=== PATIENT | female | born 1960 | race Caucasian/White ===

== ENCOUNTER → 2016-12-06 | Outpatient (CLI) | payer OTHER ==
[~2016-12-06] MED LIST: ATEN50TA2 PO; CENTRUM MULTIVITAMIN PO; LISI10TA4 PO; VITATAB11 PO; VOLT1GEL24 TD
--- NOTE | 2016-12-07 05:33 | REP ---
Clinical: Hypertension . Technique: León scale and color Doppler evaluation using linear high frequency transducer Findings: Two-dimensional león scale and color images demonstrate normal arterial lumen with laminar flow and no appreciable narrowing. Color Doppler interrogation demonstrates normal arterial wave patterns and velocities with no significant spectral broadening. Normal flow direction is appreciated in the bilateral vertebral arteries. RIGHT (cm/s) LEFT (cm/s) ICA peak systolic velocity 60.5 74.7 ICA diastolic velocity 27.2 37.7 ECA peak systolic velocity 70.7 101.7 CCA peak systolic velocity 84.0 95.5 ICA/CCA ratio 0.72 0.78 Impression: No hemodynamically significant areas of narrowing or stenosis appreciated. Based on set standards narrowing falls within the normal range. Signed by Rui Keene MD 12/07/2016 05:24 A
== END ==
LOC: M RAD 10:25
PROVIDERS: ATTEND Physician Assistant Medical
DX: R09.89 Other specified symptoms and signs involving the circulatory and respiratory systems (principal)

== ENCOUNTER → 2017-01-04 | Outpatient (CLI) | payer OTHER ==
[2017-01-04 17:10] LABS: BASO % 0.4 % (0.0-1.0); EOS # 0.1 K/mm3 (0.0-0.50); EOS % 1.4 % (0.0-3.0); LYMPH # 2.1 K/mm3 (1.5-4.5); LYMPH % 26.4 % (24.0-44.0); MEAN CORPUSCULAR HEMOGLOBIN 35.5 pg (27.0-33.0); MEAN CORPUSCULAR HGB CONC 32.8 g/dl (32.0-36.5); MEAN CORPUSCULAR VOLUME 108.2 fl (80.0-96.0); MONO # 0.5 K/mm3 (0.0-0.8); MONO % 6.3 % (0.0-5.0); NEUTROPHILS # 5.1 K/mm3 (1.8-7.7); NEUTROPHILS % 63.7 % (36.0-66.0); RED CELL DISTRIBUTION WIDTH 12.3 % (11.5-14.5)
[2017-01-04 17:45] LABS: ALBUMIN 3.8 GM/DL (3.2-5.2); ALBUMIN/GLOBULIN RATIO 1.31 (1.00-1.93); ALKALINE PHOSPHATASE 99 U/L (45-117); ALT/SGPT 20 U/L (12-78); ANION GAP 8 MEQ/L (8-16); AST/SGOT 21 U/L (15-37); BILIRUBIN,TOTAL 0.7 MG/DL (0.2-1.0); BLOOD UREA NITROGEN 8 MG/DL (7-18); CALCIUM LEVEL 8.6 MG/DL (8.5-10.1); CARBON DIOXIDE LEVEL 28 MEQ/L (21-32); CHLORIDE LEVEL 102 MEQ/L (98-107); CHOLESTEROL LEVEL 239 MG/DL (<200); CREATININE FOR GFR 0.71 MG/DL (0.55-1.02); GLOMERULAR FILTRATION RATE > 60.0 (>51); GLUCOSE, FASTING 94 MG/DL (70-105); POTASSIUM SERUM 4.3 MEQ/L (3.5-5.1); SODIUM LEVEL 138 MEQ/L (136-145); TOTAL PROTEIN 6.7 GM/DL (6.4-8.2); TRIGLYCERIDES LEVEL 147 MG/DL (<150)
== END ==
LOC: M WUC 12:45
PROVIDERS: ATTEND Physician Assistant Medical
DX: I10 Essential (primary) hypertension (principal)

== ENCOUNTER 2019-11-26 10:03 | Emergency (ER) | payer OTHER ==
[~2019-11-26] VITALS: Ht 177.8 cm; Wt 58.5 kg
[~2019-11-26 10:03] MED LIST changes: +VOLT1GEL15 TD; -VOLT1GEL24 TD
[2019-11-26] MEDS ORDERED: NS 1,000 ML IV ONE ×2 (10:30→12:30)
--- NOTE | 2019-11-26 10:43 | ECGEPIP ---
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
[2019-11-26 10:53] LABS: BASO # 0.1 10^3/uL (0.0-0.2); BASO % 0.6 % (0.0-1.0); EOS % 0.3 % (0.0-3.0); HEMATOCRIT 34.4 % (36.0-47.0); LYMPH % 12.2 % (24.0-44.0); MEAN CORPUSCULAR HEMOGLOBIN 36.5 pg (27.0-33.0); MEAN CORPUSCULAR HGB CONC 34.9 g/dl (32.0-36.5); MEAN CORPUSCULAR VOLUME 104.6 fl (80.0-96.0); MONO # 0.9 10^3/uL (0.0-0.8); MONO % 10.8 % (0.0-5.0); NEUTROPHILS # 5.8 10^3/uL (1.5-8.5); NEUTROPHILS % 74.3 % (36.0-66.0); PLATELET COUNT, AUTOMATED 177 10^3/uL (150-450); RED BLOOD COUNT 3.29 10^6/uL (4.00-5.40); WHITE BLOOD COUNT 7.8 10^3/uL (4.0-10.0)
[2019-11-26 11:17] LABS: CK-MB VALUE MASS 4.2 NG/ML (<3.6); MB/CK RELATIVE INDEX 6.27 (< OR =4); TROPONIN I 0.02 NG/ML (< 0.10)
[2019-11-26 11:58] LABS: ALBUMIN 3.9 GM/DL (3.2-5.2); BILIRUBIN,DIRECT 0.7 MG/DL (0.0-0.2); BILIRUBIN,TOTAL 1.2 MG/DL (0.2-1.0); CALCIUM LEVEL 9.3 MG/DL (8.5-10.1); CREATININE FOR GFR 1.41 MG/DL (0.55-1.30); GLOMERULAR FILTRATION RATE 40.9 (>51); TOTAL PROTEIN 7.2 GM/DL (6.4-8.2)
[2019-11-26] MEDS ORDERED: POTASSIUM CHLORIDE 10 MEQ SR TABLET PO ONE ×2 (12:30→16:15)
--- NOTE | 2019-11-26 13:32 | REP ---
RIGHT UPPER QUADRANT SONOGRAPHY: HISTORY: Abdomen pain and vomiting. Pancreatitis. No comparison study. FINDINGS: Scanning through the right upper quadrant of the abdomen demonstrates a contracted appearing gallbladder with borderline wall thickness, 3.8 mm. No pericholecystic fluid is seen. No cholelithiasis is appreciated. Common bile duct is normal measuring 0.4 cm in greatest diameter. No focal liver lesion is seen. There is no evidence of ascites. Pancreas is unremarkable. There is a 1.1 cm cyst in the mid to lower pole of the right kidney. The right kidney measures 10.3 x 6.1 x 4.9 cm. No hydronephrosis is seen. IMPRESSION: Small right renal cyst. Partially contracted appearing gallbladder without visible stone or pericholecystic fluid. Normal pancreas and liver. Electronically Signed by Stas Baird MD 11/26/2019 01:45 P
[2019-11-26 16:40] VITALS: BP 131/63
[2019-11-26] MEDS ORDERED: MAGN400T2 PO (17:54)
== END 2019-11-26 16:57 | disposition home or self-care (01) ==
LOC: M ED 10:03
DX: K85.90 Acute pancreatitis without necrosis or infection, unspecified (principal); E87.6 Hypokalemia; N28.1 Cyst of kidney, acquired; R00.0 Tachycardia, unspecified; I10 Essential (primary) hypertension; I44.7 Left bundle-branch block, unspecified; F17.200 Nicotine dependence, unspecified, uncomplicated

== ENCOUNTER → 2019-12-17 | Outpatient (CLI) | payer OTHER ==
[~2019-12-17] MED LIST changes: +MAGN400T2 PO
== END ==
LOC: M LABSMTC 13:39
PROVIDERS: ATTEND Family Medicine
DX: Z11.59 Encounter for screening for other viral diseases (principal); Z20.828 Contact with and (suspected) exposure to other viral communicable diseases

== ENCOUNTER → 2019-12-22 | Outpatient (CLI) | payer OTHER ==
--- NOTE | 2019-12-22 15:21 | REP ---
CHEST, TWO VIEWS: There is no evidence of acute infiltrate. No pleural effusion is seen. The heart is normal in size. The mediastinal silhouette is unremarkable. The visualized osseous structures are intact. IMPRESSION: No acute pulmonary disease. Electronically Signed by Maximo León MD 12/22/2019 04:01 P
== END ==
LOC: M LRY 14:39
PROVIDERS: ATTEND Physician Assistant
DX: R06.00 Dyspnea, unspecified (principal)

== ENCOUNTER → 2019-12-22 | Outpatient (REF) | payer OTHER ==
[2019-12-22 19:39] LABS: BASO # 0.1 10^3/uL (0.0-0.2); BASO % 1.2 % (0.0-1.0); EOS # 0.1 10^3/uL (0.0-0.5); HEMATOCRIT 38.5 % (36.0-47.0); HEMOGLOBIN 12.9 g/dl (12.0-15.5); LYMPH # 1.5 10^3/uL (1.5-5.0); LYMPH % 31.2 % (24.0-44.0); MEAN CORPUSCULAR HEMOGLOBIN 36.2 pg (27.0-33.0); MEAN CORPUSCULAR HGB CONC 33.5 g/dl (32.0-36.5); MEAN CORPUSCULAR VOLUME 108.1 fl (80.0-96.0); MONO # 0.6 10^3/uL (0.0-0.8); MONO % 12.7 % (0.0-5.0); NEUTROPHILS # 2.6 10^3/uL (1.5-8.5); NEUTROPHILS % 53.5 % (36.0-66.0); PLATELET COUNT, AUTOMATED 196 10^3/uL (150-450); RED BLOOD COUNT 3.56 10^6/uL (4.00-5.40); WHITE BLOOD COUNT 4.8 10^3/uL (4.0-10.0)
[2019-12-22 20:12] LABS: ALBUMIN 3.5 GM/DL (3.2-5.2); ALT/SGPT 170 U/L (12-78); BILIRUBIN,TOTAL 0.9 MG/DL (0.2-1.0); BLOOD UREA NITROGEN 6 MG/DL (7-18); CALCIUM LEVEL 8.6 MG/DL (8.5-10.1); CARBON DIOXIDE LEVEL 28 MEQ/L (21-32); CHLORIDE LEVEL 99 MEQ/L (98-107); CREATININE FOR GFR 0.51 MG/DL (0.55-1.30); GLOMERULAR FILTRATION RATE > 60.0 (>51); GLUCOSE, FASTING 89 MG/DL (70-100); LIPASE 315 U/L (73-393); MAGNESIUM LEVEL 1.4 MG/DL (1.8-2.4); POTASSIUM SERUM 3.5 MEQ/L (3.5-5.1); SODIUM LEVEL 140 MEQ/L (136-145); TOTAL PROTEIN 6.7 GM/DL (6.4-8.2)
[2019-12-25 00:07] LABS: EBV VIRAL CAPSID AG IgM <36.0 U/mL (0.0-35.9)
== END ==
LOC: M SFHCLERA 14:41
PROVIDERS: ATTEND Physician Assistant
DX: R53.83 Other fatigue (principal); R79.89 Other specified abnormal findings of blood chemistry

== ENCOUNTER 2019-12-30 10:06 | Emergency (ER) | payer OTHER ==
[~2019-12-30] VITALS: Ht 177.8 cm; Wt 57.7 kg
[2019-12-30] MEDS ORDERED: NS 1,000 ML IV ONE (10:30)
[2019-12-30 11:19] LABS: BASO # 0.1 10^3/uL (0.0-0.2); BASO % 0.9 % (0.0-1.0); EOS % 0.4 % (0.0-3.0); HEMATOCRIT 34.6 % (36.0-47.0); HEMOGLOBIN 12.1 g/dl (12.0-15.5); LYMPH # 0.8 10^3/uL (1.5-5.0); LYMPH % 14.5 % (24.0-44.0); MEAN CORPUSCULAR HEMOGLOBIN 37.6 pg (27.0-33.0); MEAN CORPUSCULAR VOLUME 107.5 fl (80.0-96.0); MONO # 0.6 10^3/uL (0.0-0.8); MONO % 11.3 % (0.0-5.0); NEUTROPHILS # 4.1 10^3/uL (1.5-8.5); PLATELET COUNT, AUTOMATED 144 10^3/uL (150-450); RED BLOOD COUNT 3.22 10^6/uL (4.00-5.40); WHITE BLOOD COUNT 5.7 10^3/uL (4.0-10.0)
[2019-12-30 11:29] LABS: INR 1.04; PROTHROMBIN TIME 13.3 SECONDS (11.8-14.0)
[2019-12-30 11:30] LABS: PARTIAL THROMBOPLASTIN TIME 28.6 SECONDS (25.0-38.4)
[2019-12-30 11:42] LABS: ALBUMIN 3.1 GM/DL (3.2-5.2); ALT/SGPT 144 U/L (12-78); AMYLASE 36 U/L (25-115); BILIRUBIN,DIRECT 1.1 MG/DL (0.0-0.2); BILIRUBIN,TOTAL 1.9 MG/DL (0.2-1.0); BLOOD UREA NITROGEN 8 MG/DL (7-18); CALCIUM LEVEL 8.7 MG/DL (8.5-10.1); CARBON DIOXIDE LEVEL 24 MEQ/L (21-32); CHLORIDE LEVEL 100 MEQ/L (98-107); CREATININE FOR GFR 0.57 MG/DL (0.55-1.30); GLOMERULAR FILTRATION RATE > 60.0 (>51); GLUCOSE, FASTING 127 MG/DL (70-100); LIPASE 478 U/L (73-393); SODIUM LEVEL 137 MEQ/L (136-145); TOTAL PROTEIN 6.6 GM/DL (6.4-8.2)
[2019-12-30] MEDS: GASTROGRAFIN SOLUTION 30ML PO SCH ×2 (11:46→12:13)
[2019-12-30] MEDS ORDERED: ISOVUE-370 76% 100ML VIAL As Ordered ONE (12:57)
[2019-12-30 13:00] LABS: FREE T4 0.97 NG/DL (0.76-1.46)
--- NOTE | 2019-12-30 14:18 | REP ---
CT ABDOMEN AND PELVIS WITH IV AND ORAL CONTRAST: HISTORY: Poor appetite. Elevated liver function studies. Tobacco use. No comparison CT study. CT CONTRAST DOSE: 100 mL of intravenous Isovue 370. 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 The lung bases are clear on axial CT images. There is profound diffuse fatty infiltration of the liver. The liver is enlarged measuring approximately 17 cm in craniocaudal span in the midclavicular line. Spleen is normal in size homogeneous in texture. No ascites is seen. Normal adrenal glands are seen. There are cortical cysts affecting the kidneys bilaterally. The largest of these is an upper pole cyst in the left kidney measuring 2.7 cm in greatest diameter. No abnormality is noted in the pancreas. The gallbladder is mildly distended but otherwise unremarkable. No hydronephrosis is seen. The small and large intestinal bowel loops are normal in the upper abdomen. No retroperitoneal mass or adenopathy is seen. The appendix is surgically absent. No uterine or ovarian abnormality is observed. Urinary bladder is intact. No abdominal wall defect is seen. Bone window settings demonstrate no bony destructive lesion. There are degenerative disc changes at L5-S1. There is a mild old wedge deformity at the T12 vertebral body level. IMPRESSION: Marked fatty infiltration of the liver consistent with steatohepatitis. Small bilateral renal cysts. Somewhat distended but otherwise unremarkable gallbladder. Post appendectomy. Otherwise negative. Electronically Signed by Stas Baird MD 12/30/2019 03:48 P
[2019-12-30] MEDS ORDERED: ONDA4TAB6 PO (14:27)
[2019-12-30] MEDS ORDERED: POTASSIUM CHLORIDE 10 MEQ SR TABLET PO ONE (14:30)
[2019-12-30 14:39] VITALS: BP 138/69
--- NOTE | 2019-12-31 08:30 | ECGEPIP ---
[facility] - ED Test Date: 2019-12-30 Pat Name: SEEMA MARTEL Department: Room: - Gender: Female [employer]: : 1960 Requested By: JOSEPHINE ZARATE PA-C. Order Number: [id number] Reading MD: Chino Soares Measurements Intervals [place] Rate: 108 P: 69 MD: 156 QRS: -37 QRSD: 146 T: 114 QT: 373 QTc: 502 Interpretive Statements SINUS TACHYCARDIA LEFT AXIS DEVIATION LEFT BUNDLE BRANCH BLOCK SIMILAR TO 11/26/19 Electronically Signed on 12-31-2019 8:30:25 EDT by Chino Soares
[2019-12-31 09:40] LABS: HEPATITIS B SURFACE ANTIGEN NEGATIVE (NEGATIVE)
[2019-12-31 10:07] LABS: HEPATITIS B CORE ANTIBODY IGM NEGATIVE (NEGATIVE)
[2019-12-31 10:09] LABS: HEPATITIS A ANTIBODY IGM NEGATIVE (NEGATIVE)
[2019-12-31 14:17] LABS: ANTINUCLEAR ANTIBODIES DIRECT Negative (Negative)
== END 2019-12-30 14:57 | disposition home or self-care (01) ==
LOC: M ED 10:06
DX: E87.6 Hypokalemia (principal); K75.81 Nonalcoholic steatohepatitis (NASH); I10 Essential (primary) hypertension; R00.0 Tachycardia, unspecified; I44.7 Left bundle-branch block, unspecified; Z79.899 Other long term (current) drug therapy; F17.210 Nicotine dependence, cigarettes, uncomplicated
CPT/HCPCS: 74177; 80048; 80076; 82150; 83690; 84439; 84443; 85025; 85610; 85730; 86038; 86705; 86709; 86803; 87340; 93005; 96360; 99284; Q9963; Q9967

== ENCOUNTER 2020-01-14 22:15 | Emergency (ER) | payer OTHER ==
[~2020-01-14] VITALS: Ht 177.8 cm; Wt 56.0 kg
[~2020-01-14 22:15] MED LIST changes: +ONDA4TAB6 PO
[2020-01-15 00:13] LABS: BASO # 0.1 10^3/uL (0.0-0.2); BASO % 1.7 % (0.0-1.0); EOS % 0.6 % (0.0-3.0); HEMATOCRIT 35.1 % (36.0-47.0); HEMOGLOBIN 12.2 g/dl (12.0-15.5); LYMPH # 0.9 10^3/uL (1.5-5.0); LYMPH % 18.5 % (24.0-44.0); MEAN CORPUSCULAR HEMOGLOBIN 37.2 pg (27.0-33.0); MEAN CORPUSCULAR HGB CONC 34.8 g/dl (32.0-36.5); MONO # 0.6 10^3/uL (0.0-0.8); MONO % 12.3 % (0.0-5.0); NEUTROPHILS # 3.2 10^3/uL (1.5-8.5); NEUTROPHILS % 65.6 % (36.0-66.0); PLATELET COUNT, AUTOMATED 210 10^3/uL (150-450); RED BLOOD COUNT 3.28 10^6/uL (4.00-5.40); WHITE BLOOD COUNT 4.8 10^3/uL (4.0-10.0)
[2020-01-15 00:19] LABS: ALBUMIN 3.5 GM/DL (3.2-5.2); ALT/SGPT 121 U/L (12-78); BILIRUBIN,DIRECT 0.8 MG/DL (0.0-0.2); BILIRUBIN,TOTAL 1.3 MG/DL (0.2-1.0); BLOOD UREA NITROGEN 6 MG/DL (7-18); C REACTIVE PROTEIN QUANTITATIV 0.56 MG/DL (0.00-0.30); CARBON DIOXIDE LEVEL 25 MEQ/L (21-32); CHLORIDE LEVEL 103 MEQ/L (98-107); CPK CREATINE PHOSPHOKINASE 54 U/L (26-192); CREATININE FOR GFR 0.51 MG/DL (0.55-1.30); FREE T4 1.05 NG/DL (0.76-1.46); GLOMERULAR FILTRATION RATE > 60.0 (>51); GLUCOSE, FASTING 95 MG/DL (70-100); MYOGLOBIN 51 NG/ML (13-71); SODIUM LEVEL 141 MEQ/L (136-145); TOTAL PROTEIN 6.8 GM/DL (6.4-8.2)
[2020-01-15 00:34] LABS: ERYTHROCYTE SEDIMENTATION RATE 25 mm/hr (0-30)
[2020-01-15] MEDS ORDERED: PROHANCE 279.3MG/ML 5ML VIAL As Ordered ONE (00:54)
--- NOTE | 2020-01-15 01:41 | REPVR ---
PROCEDURE INFORMATION: Exam: MR Head Without and With Contrast Exam date and time: 01/15/2020 1:21 AM Age: 59 years old Clinical indication: Weakness, extremity; Bilateral; Patient HX: PT states weakness for years that has worsened over the past 2. Nki PT states no priors; Additional info: Progressive weakness, R/O ms, request Dr. Pineda TECHNIQUE: Imaging protocol: MR of the head without and with intravenous contrast. 3D rendering: MIP and/or 3D reconstructed images were created by the technologist. Contrast material: PROHANCE; Contrast volume: 10 ml; Contrast route: 22G; COMPARISON: No relevant prior studies available. FINDINGS: Mild volume loss. Major vascular flow voids at the skull base are preserved. No extra-axial fluid collection. Minimal nonspecific white matter gliosis. No midline shift or intracranial mass effect. No diffusion restriction. No pathologic intracranial enhancement. Visualized paranasal sinuses and mastoid air cells are clear. IMPRESSION: Minimal white matter gliosis, nonspecific. Suspect sequelae of chronic microvascular ischemia, atypical appearance for demyelination . Electronically signed by: Azam Conroy On 01/15/2020 01:41:07 AM
--- NOTE | 2020-01-15 01:41 | REPVR ---
PROCEDURE INFORMATION: Exam: MR Cervical Spine Without and With Contrast Exam date and time: 01/15/2020 1:21 AM Age: 59 years old Clinical indication: Patient HX: PT states weakness for years that has worsened over the past 2. Nki PT states no priors; Additional info: Progressive weakness, R/O ms, request Dr. Pineda TECHNIQUE: Imaging protocol: Multiplanar magnetic resonance images of the cervical spine without and with intravenous contrast. Contrast material: PROHANCE; Contrast volume: 10 ml; Contrast route: 22G; COMPARISON: No relevant prior studies available. FINDINGS: Trace anterolisthesis of C4 on C5 and trace retrolisthesis of C5 on C6. Vertebral body heights are preserved. Multilevel disc desiccation with disc space narrowing greatest at C5-C6, moderate. There is degenerative endplate signal. No evidence of discitis/osteomyelitis. No abnormal cord signal or cord expansion. No epidural fluid collection. No pathologic intrathecal enhancement. There is reactive edema involving the right C3-C4 facet joint and the left C4-C5 facet joint. C2-C3: No significant central or foraminal stenosis. C3-C4: Minimal disc osteophyte complex with facet joint arthropathy greater on the right side. Small right-sided facet joint effusion. No significant central or foraminal stenosis. C4-C5: Mild disc osteophyte complex with uncinate spurring and facet joint arthropathy greater on the left. No significant central canal stenosis. There is moderate to severe left foraminal stenosis. C5-C6: Kaxz-vw-ikpwtgwt disc osteophyte complex with bilateral uncinate spurring. No significant central canal stenosis. Severe right and moderate to severe left foraminal stenosis. C6-C7: Zfbe-ze-mslchkjs disc osteophyte complex with bilateral uncinate spurring. No significant central canal stenosis. Rqao-sp-bkqrjqsg bilateral foraminal stenosis. C7-T1: No significant central or foraminal stenosis. IMPRESSION: 1. No abnormal cord signal. 2. Reactive edema involving the right C3-C4 facet joint and the left C4-C5 facet joint. Finding can be pain generating. 3. Degenerative findings as above without high-grade central canal stenosis or cord compression. Electronically signed by: Azam Conroy On 01/15/2020 01:41:18 AM
[2020-01-15 02:06] LABS: ETHYL ALCOHOL (ETHANOL) 0.296 % (0.000-0.010)
[2020-01-15 02:15] VITALS: BP 142/72
[2020-01-15] MEDS ORDERED: POTASSIUM CHLORIDE 10 MEQ SR TABLET PO ONE (02:30)
[2020-01-22 11:08] LABS: ACETYLCHOLINE RCPTOR BLOCK AB 13 % (0-25); ACETYLCHOLINE RCPTOR MODULATIN <12 % (0-20); ANTI DS-DNA AB Negative (Negative); ANTI JO-1 ANTIBODIES <0.2 AI (0.0-0.9); ANTI-MITOCHONDRIAL ANTIBODY <20.0 Units (0.0-20.0); ANTI-SMOOTH MUSCLE ANTIBODY 4 Units (0-19); ANTINUCLEAR ANTIBODIES DIRECT Negative (Negative); CERULOPLASMIN 23.1 mg/dL (19.0-39.0); HAPTOGLOBIN 198 mg/dL (33-346); LIVER-KIDNEY MICROSOMAL ABY <20.1 Units (0.0-20.0); SJOGREN'S ANTI SS-A <0.2 AI (0.0-0.9); SJOGREN'S ANTI SS-B <0.2 AI (0.0-0.9)
== END 2020-01-15 02:39 | disposition home or self-care (01) ==
LOC: M ED 22:15
DX: F10.120 Alcohol abuse with intoxication, uncomplicated (principal); K70.10 Alcoholic hepatitis without ascites; E87.6 Hypokalemia; M62.81 Muscle weakness (generalized); I10 Essential (primary) hypertension; M51.36 Other intervertebral disc degeneration, lumbar region; F17.200 Nicotine dependence, unspecified, uncomplicated; Z79.899 Other long term (current) drug therapy
CPT/HCPCS: 70553; 72156; 80048; 80076; 82390; 82550; 83010; 83519; 83874; 84439; 84443; 85025; 85652; 86038; 86140; 86225; 86235; 86255; 86376; 99284; A9576; G0480

== ENCOUNTER 2020-01-23 13:20 | Emergency (ER) | payer OTHER ==
[~2020-01-23] VITALS: Ht 177.8 cm; Wt 53.6 kg
[~2020-01-23 13:20] MED LIST changes: -POTA20TA6 PO
[2020-01-23] MEDS ORDERED: NS 1,000 ML IV ONE (14:15)
[2020-01-23 14:38] LABS: BASO % 0.5 % (0.0-1.0); EOS % 0.2 % (0.0-3.0); HEMATOCRIT 29.6 % (36.0-47.0); LYMPH # 1.1 10^3/uL (1.5-5.0); LYMPH % 16.6 % (24.0-44.0); MEAN CORPUSCULAR HEMOGLOBIN 35.8 pg (27.0-33.0); MEAN CORPUSCULAR HGB CONC 33.8 g/dl (32.0-36.5); MEAN CORPUSCULAR VOLUME 106.1 fl (80.0-96.0); MONO # 0.7 10^3/uL (0.0-0.8); MONO % 10.5 % (0.0-5.0); NEUTROPHILS # 4.6 10^3/uL (1.5-8.5); NEUTROPHILS % 71.6 % (36.0-66.0); PLATELET COUNT, AUTOMATED 137 10^3/uL (150-450); RED BLOOD COUNT 2.79 10^6/uL (4.00-5.40); WHITE BLOOD COUNT 6.4 10^3/uL (4.0-10.0)
[2020-01-23 14:50] LABS: INR 1.15; PROTHROMBIN TIME 14.4 SECONDS (11.8-14.0)
[2020-01-23 14:51] LABS: PARTIAL THROMBOPLASTIN TIME 28.4 SECONDS (25.0-38.4)
[2020-01-23 14:56] LABS: ERYTHROCYTE SEDIMENTATION RATE 20 mm/hr (0-30)
[2020-01-23 15:23] LABS: MONO REFLEX EBV COMP NEGATIVE (NEGATIVE)
[2020-01-23 16:04] LABS: ALT/SGPT 103 U/L (12-78); BILIRUBIN,DIRECT 1.9 MG/DL (0.0-0.2); BILIRUBIN,TOTAL 2.7 MG/DL (0.2-1.0); BLOOD UREA NITROGEN 10 MG/DL (7-18); C REACTIVE PROTEIN QUANTITATIV 0.98 MG/DL (0.00-0.30); CALCIUM LEVEL 8.1 MG/DL (8.5-10.1); CARBON DIOXIDE LEVEL 18 MEQ/L (21-32); CHLORIDE LEVEL 97 MEQ/L (98-107); CK-MB VALUE MASS 1.9 NG/ML (<3.6); CPK CREATINE PHOSPHOKINASE 45 U/L (26-192); CREATININE FOR GFR 0.56 MG/DL (0.55-1.30); FREE T4 1.01 NG/DL (0.76-1.46); GLOMERULAR FILTRATION RATE > 60.0 (>51); GLUCOSE, FASTING 84 MG/DL (70-100); HEPATITIS A ANTIBODY IGM NEGATIVE (NEGATIVE); HEPATITIS B CORE ANTIBODY IGM NEGATIVE (NEGATIVE); HEPATITIS B SURFACE ANTIGEN NEGATIVE (NEGATIVE); HEPATITIS C VIRUS ABY INDEX 0.2 INDEX (<0.8); LIPASE 543 U/L (73-393); MAGNESIUM LEVEL 0.8 MG/DL (1.8-2.4); MB/CK RELATIVE INDEX 4.22 (< OR =4); NT-PRO BNP 909 PG/ML (<125); SODIUM LEVEL 134 MEQ/L (136-145); TOTAL PROTEIN 6.1 GM/DL (6.4-8.2); TROPONIN I 0.05 NG/ML (< 0.10)
[2020-01-23] MEDS ORDERED: ISOVUE-370 76% 100ML VIAL As Ordered ONE (16:09)
[2020-01-23 16:29] LABS: APPEARANCE, URINE CLEAR (CLEAR); BACTERIA, URINE AUTO NEGATIVE (NEGATIVE); BILIRUBIN, URINE AUTO NEGATIVE (NEGATIVE); BLOOD, URINE BLOOD NEGATIVE (NEGATIVE); COLOR, URINE YELLOW (YELLOW); GLUCOSE, URINE (UA) AUTO 1+ mg/dL (NEGATIVE); KETONE, URINE AUTO 1+ mg/dL (NEGATIVE); LEUKOCYTE ESTERASE, URINE AUTO NEGATIVE (NEGATIVE); MUCUS, URINE SMALL (NEGATIVE); NITRITE, URINE AUTO NEGATIVE (NEGATIVE); PROTEIN, URINE AUTO NEGATIVE (NEGATIVE); RBC, URINE AUTO 1 /HPF (0-3); SPECIFIC GRAVITY URINE AUTO 1.009 (1.002-1.035); SQUAMOUS EPITHELIAL CELL UR AU 1 /HPF (0-6); WBC, URINE AUTO 2 /HPF (0-3)
[2020-01-23] MEDS ORDERED: NS IV ONE (16:30)
[2020-01-23] MEDS ORDERED: MAG SULF 1GM/100ML (MAG RUN) 1 GM in IV 1 EA IV ONE (16:30)
[2020-01-23] MEDS ORDERED: POTASSIUM CHLORIDE 10 MEQ SR TABLET PO ONE (16:30)
[2020-01-23] MEDS ORDERED: MULTIVITAMIN -ADULT INJECTION 10 ML, THIAMINE INJection 100 MG, FOLIC ACID 1 MG in NS 1... IV ONE (16:30)
[2020-01-23 16:56] LABS: AMPHETAMINES LEVEL URINE NEGATIVE (NEGATIVE); BARBITURATES URINE NEGATIVE (NEGATIVE); BENZODIAZEPINES URINE NEGATIVE (NEGATIVE); CANNABINOIDS URINE NEGATIVE (NEGATIVE); COCAINE METABOLITE URINE NEGATIVE (NEGATIVE); METHADONE URINE NEGATIVE (NEGATIVE); OPIATES URINE NEGATIVE (NEGATIVE); PHENCYCLIDINE URINE NEGATIVE (NEGATIVE)
[2020-01-23] MEDS ORDERED: POTA20TA6 PO (18:56)
[2020-01-23] MEDS ORDERED: MAGN400T2 PO (18:56)
[2020-01-23 19:15] VITALS: BP 131/66
--- NOTE | 2020-01-23 21:13 | ECGEPIP ---
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
--- NOTE | 2020-01-24 11:00 | REP ---
CT ANGIOGRAM CHEST: TECHNIQUE: Axial contrast-enhanced images from the thoracic inlet to the upper abdomen using 100 mL Isovue-370 intravenous contrast material with multiplanar reformations. There is no CT evidence of pulmonary embolism. There is no thoracic aortic aneurysm or dissection with mild atherosclerotic calcification. The heart is normal in size. There is no mediastinal, hilar, or chest wall lymphadenopathy. There is no pleural or pericardial effusion. There is a calcified granuloma in the right upper lobe. There are mild scattered fibrotic changes in the lungs. There are mild degenerative changes of the spine with old compression deformity of T12. IMPRESSION: No CT evidence of pulmonary embolism or other acute findings. Electronically Signed by Maximo León MD 01/26/2020 10:21 P
--- NOTE | 2020-01-24 11:13 | REP ---
REASON: Elevated liver enzymes. COMPARISON: 12/30/2019, the only prior. CONTRAST: 100 mL Isovue 370. Once again, there is hepatomegaly and marked diffuse low densities throughout the hepatic parenchyma status quo. The gallbladder, spleen, adrenal glands, and kidneys are unchanged. There are bilateral renal cysts status quo. Within the pancreas, there is an oval-shaped 1 cm sized area of low density compared to the pancreatic parenchyma. This is stable. 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 The abdominal aorta and para-aortic regions are essentially unchanged. The bowel loops and their mesenteries have not changed significantly. Patchy dusky-appearing mesentery is again noted status quo. No free fluid or free air has developed in the abdomen or pelvis. No intra-abdominal or intrapelvic mass or adenopathy is present. There is no significant change in the appearance of the osseous structures. The lung bases are clear. IMPRESSION: 1. There has been no significant change compared to the prior exam. There is hepatomegaly and marked fatty infiltration of the liver. There are bilateral renal cysts status quo. There is a small low density lesion the pancreas which cannot be confirmed as a simple cyst. Pre-and post gadolinium enhanced pancreatic MRI is recommended. 2. Chronic mesenteric changes status quo. 3. Other findings as described above. Electronically Signed by Romero Bañuelos DO 01/26/2020 10:55 A
[2020-01-26 13:06] LABS: EBV VIRAL CAPSID AG IgM <36.0 U/mL (0.0-35.9)
== END 2020-01-23 19:23 | disposition left against medical advice (07) ==
LOC: M ED 13:20
DX: R79.9 Abnormal finding of blood chemistry, unspecified (principal); M62.81 Muscle weakness (generalized); E87.6 Hypokalemia; E83.42 Hypomagnesemia; I44.2 Atrioventricular block, complete; I44.7 Left bundle-branch block, unspecified; R00.0 Tachycardia, unspecified; I10 Essential (primary) hypertension; K76.0 Fatty (change of) liver, not elsewhere classified; K86.9 Disease of pancreas, unspecified; R16.0 Hepatomegaly, not elsewhere classified; M51.26 Other intervertebral disc displacement, lumbar region; N28.1 Cyst of kidney, acquired; F17.200 Nicotine dependence, unspecified, uncomplicated; Z79.899 Other long term (current) drug therapy; Z53.20 Procedure and treatment not carried out because of patient's decision for unspecified reasons
CPT/HCPCS: 71275; 74177; 80048; 80076; 80307; 81001; 82550; 82553; 83605; 83690; 83735; 83880; 84439; 84443; 84484; 85025; 85610; 85652; 85730; 86140; 86308; 86664; 86665; 86705; 86709; 86803; 87340; 93005; 93041; 94760; 96361; 96365; 96366; 96368; 99285; J3411; J3475; Q9967

== ENCOUNTER → 2020-01-23 | Outpatient (REF) | payer OTHER ==
[~2020-01-23] MED LIST changes: +POTA20TA6 PO
[2020-01-23 12:44] LABS: ALBUMIN 3.4 GM/DL (3.2-5.2); ALT/SGPT 124 U/L (12-78); BILIRUBIN,TOTAL 2.6 MG/DL (0.2-1.0); BLOOD UREA NITROGEN 9 MG/DL (7-18); C REACTIVE PROTEIN QUANTITATIV 0.98 MG/DL (0.00-0.30); CALCIUM LEVEL 8.8 MG/DL (8.5-10.1); CARBON DIOXIDE LEVEL 20 MEQ/L (21-32); CHLORIDE LEVEL 96 MEQ/L (98-107); CREATININE FOR GFR 0.74 MG/DL (0.55-1.30); ETHYL ALCOHOL (ETHANOL) 0.167 % (0.000-0.010); GLOMERULAR FILTRATION RATE > 60.0 (>51); GLUCOSE, FASTING 107 MG/DL (70-100); MAGNESIUM LEVEL 0.9 MG/DL (1.8-2.4); NT-PRO BNP 1062 PG/ML (<125); POTASSIUM SERUM 3.2 MEQ/L (3.5-5.1); SODIUM LEVEL 138 MEQ/L (136-145); TOTAL PROTEIN 6.8 GM/DL (6.4-8.2); TROPONIN I 0.03 NG/ML (< 0.10); VITAMIN B12 LEVEL 701 PG/ML (247-911)
[2020-02-02 07:06] LABS: Lyme Disease IgG/IgM Antibodie <0.91 ISR (0.00-0.90); Lyme Disease IgM Ab Quantitati <0.80 index (0.00-0.79)
== END ==
LOC: M SFHCPLAZ 09:47
PROVIDERS: ATTEND Family Medicine
DX: K76.0 Fatty (change of) liver, not elsewhere classified (principal); F10.20 Alcohol dependence, uncomplicated; R29.898 Other symptoms and signs involving the musculoskeletal system; D75.89 Other specified diseases of blood and blood-forming organs; R06.00 Dyspnea, unspecified; R00.0 Tachycardia, unspecified; Z76.89 Persons encountering health services in other specified circumstances

== ENCOUNTER → 2020-01-30 | Outpatient (CLI) | payer OTHER ==
[~2020-01-30] VITALS: Ht 177.8 cm; Wt 54.4 kg
[~2020-01-30] MED LIST changes: +LISI10TA22 PO; -LISI10TA4 PO; +POTA20TA6 PO
[2020-01-30 14:30] VITALS: BP 92/46
[2020-01-30] MEDS: MAG SULF 1GM/100ML (MAG RUN) X 2 DOSES (2GM TOTAL) IV SCH ×4 (16:23→17:06)
[2020-01-30 18:30] VITALS: BP 100/51
== END ==
LOC: M INFU 15:55
PROVIDERS: ATTEND Family Medicine
DX: E83.42 Hypomagnesemia (principal)
CPT/HCPCS: 96365; J3475

== ENCOUNTER → 2020-01-30 | Outpatient (REF) | payer OTHER ==
[~2020-01-30] MED LIST changes: -LISI10TA22 PO; +LISI10TA4 PO
[2020-01-30 11:50] LABS: HEMATOCRIT 30.3 % (36.0-47.0); HEMOGLOBIN 9.9 g/dl (12.0-15.5); MEAN CORPUSCULAR HEMOGLOBIN 36.7 pg (27.0-33.0); MEAN CORPUSCULAR HGB CONC 32.7 g/dl (32.0-36.5); MEAN CORPUSCULAR VOLUME 112.2 fl (80.0-96.0); PLATELET COUNT, AUTOMATED 308 10^3/uL (150-450); WHITE BLOOD COUNT 9.3 10^3/uL (4.0-10.0)
[2020-01-30 12:00] LABS: INR 1.08; PROTHROMBIN TIME 13.7 SECONDS (11.8-14.0)
[2020-01-30 12:01] LABS: PARTIAL THROMBOPLASTIN TIME 30.3 SECONDS (25.0-38.4)
[2020-01-30 12:37] LABS: ALT/SGPT 92 U/L (12-78); BILIRUBIN,TOTAL 1.6 MG/DL (0.2-1.0); BLOOD UREA NITROGEN 8 MG/DL (7-18); CALCIUM LEVEL 8.2 MG/DL (8.5-10.1); CARBON DIOXIDE LEVEL 25 MEQ/L (21-32); CHLORIDE LEVEL 97 MEQ/L (98-107); CHOLESTEROL LEVEL 226 MG/DL (<200); CHOLESTEROL RISK RATIO 13.294 (<5); CREATININE FOR GFR 0.88 MG/DL (0.55-1.30); ETHYL ALCOHOL (ETHANOL) 0.006 % (0.000-0.010); FOLATE 18.3 NG/ML (>5.4); GLOMERULAR FILTRATION RATE > 60.0 (>51); GLUCOSE, FASTING 118 MG/DL (70-100); HDL CHOLESTEROL 17 MG/DL (>40); LDL CHOLESTEROL 164 MG/DL (<100); NON-HDL-C 209 MG/DL; NT-PRO BNP 1446 PG/ML (<125); POTASSIUM SERUM 3.1 MEQ/L (3.5-5.1); SODIUM LEVEL 135 MEQ/L (136-145); TOTAL PROTEIN 6.4 GM/DL (6.4-8.2); TRIGLYCERIDES LEVEL 225 MG/DL (<150)
== END ==
LOC: M SFHCPLAZ 10:39
PROVIDERS: ATTEND Family Medicine
DX: K70.10 Alcoholic hepatitis without ascites (principal); F10.20 Alcohol dependence, uncomplicated; E80.6 Other disorders of bilirubin metabolism; K76.0 Fatty (change of) liver, not elsewhere classified; R79.89 Other specified abnormal findings of blood chemistry; D53.9 Nutritional anemia, unspecified; E83.42 Hypomagnesemia

== ENCOUNTER → 2020-02-02 | Outpatient (REF) | payer OTHER | LOC: M SFHCPLAZ 11:20 | PROVIDERS: ATTEND Family Medicine | DX: K70.10 Alcoholic hepatitis without ascites (principal); F10.20 Alcohol dependence, uncomplicated; E80.6 Other disorders of bilirubin metabolism; K76.0 Fatty (change of) liver, not elsewhere classified; R79.89 Other specified abnormal findings of blood chemistry; D53.9 Nutritional anemia, unspecified; E83.42 Hypomagnesemia ==

== ENCOUNTER 2020-02-05 13:57 | Outpatient (CLI) | payer OTHER ==
[~2020-02-05] VITALS: Ht 177.8 cm; Wt 54.4 kg
[2020-02-05 14:00] VITALS: BP 132/61
[2020-02-05] MEDS: MAG SULF 1GM/100ML (MAG RUN) X 2 DOSES (2GM TOTAL) IV SCH ×4 (14:05→15:10)
[2020-02-05 16:30] VITALS: BP 117/55
== END 2020-02-05 16:30 | disposition home or self-care (01) ==
LOC: M INFU 13:57
PROVIDERS: ATTEND Family Medicine
DX: E83.42 Hypomagnesemia (principal)
CPT/HCPCS: 96365; 96366; J3475

== ENCOUNTER 2020-02-06 10:16 | Outpatient (CLI) | payer OTHER ==
[~2020-02-06] VITALS: Ht 167.6 cm; Wt 70.0 kg
[2020-02-06] MEDS: MAG SULF 1GM/100ML (MAG RUN) X 2 DOSES (2GM TOTAL) IV SCH ×4 (10:26→11:21)
[2020-02-06 10:30] VITALS: BP 126/74
[2020-02-06 12:45] VITALS: BP 135/60
== END 2020-02-06 12:45 | disposition home or self-care (01) ==
LOC: M INFU 10:16
PROVIDERS: ATTEND Family Medicine
DX: E83.42 Hypomagnesemia (principal)
CPT/HCPCS: 96365; 96366; J3475

== ENCOUNTER → 2020-05-06 | Outpatient (CLI) | payer OTHER ==
--- NOTE | 2020-05-06 10:34 | REPVR ---
PROCEDURE INFORMATION: Exam: MR Lumbar Spine Without Contrast. Exam date and time: 05/06/2020 10:05 AM Age: 59 years old Clinical indication: Low back pain TECHNIQUE: Imaging protocol: Multiplanar magnetic resonance images of the lumbar spine without intravenous contrast. COMPARISON: MRI-Spine, L.S. without con 02/06/2014 9:25 AM FINDINGS: Vertebrae: There is no fracture or listhesis. Normal vertebral body alignment and heights are preserved. There is moderate to severe intervertebral disc space loss at L5/S1. Spinal cord: The conus medullaris terminates at L1/2. L1-L2: There is shallow disc bulging. There is mild facet and ligamentous hypertrophy. There is mild bilateral neural foraminal narrowing. L2-L3: There is shallow disc bulging. There is moderate facet hypertrophy. The spinal canal and neural foramina are patent. L3-L4: There is shallow disc bulging. There is moderate facet hypertrophy. The spinal canal and neural foramina are patent. L4-L5: There is diffuse disc bulging. There is moderate facet hypertrophy. There is mild left neural foraminal narrowing. L5-S1: There is diffuse disc bulging with a superimposed focal left paracentral protrusion. There is mild facet and ligamentous hypertrophy. There is moderate to severe bilateral neural foraminal narrowing. Renal: There are bilateral renal cysts. Soft tissues: Unremarkable. IMPRESSION: Degenerative disc disease and spondylosis. At L5/S1, changes contribute to moderate to severe bilateral neural foraminal narrowing. Electronically signed by: Meseret Millan On 05/06/2020 10:33:53 AM
== END ==
LOC: M RAD 08:58
PROVIDERS: ATTEND Family Medicine
DX: G62.9 Polyneuropathy, unspecified (principal); M51.26 Other intervertebral disc displacement, lumbar region; N28.1 Cyst of kidney, acquired; M47.816 Spondylosis without myelopathy or radiculopathy, lumbar region

== ENCOUNTER 2020-06-15 10:26 | Emergency (ER) | payer OTHER ==
[~2020-06-15] VITALS: Ht 177.8 cm; Wt 53.6 kg
[2020-06-15 11:28] LABS: VENOUS BASE EXCESS -3.3 (-2.0-2.0); VENOUS HCO3 21.9 MEQ/L (23.0-27.0); VENOUS O2 SATURATION 99.3 % (60.0-80.0); VENOUS PARTIAL PRESSURE CO2 40.2 mmHg (38.0-50.0); VENOUS PARTIAL PRESSURE O2 188.4 mmHg (30.0-50.0); VENOUS PH 7.355 UNITS (7.330-7.430); VENOUS STANDARD HCO3 21.8 MEQ/L; VENOUS TOTAL CO2 23.2 MEQ/L (24.0-28.0)
[2020-06-15 11:31] LABS: BASO # 0.1 10^3/uL (0.0-0.2); EOS # 0.1 10^3/uL (0.0-0.5); EOS % 1.1 % (0.0-3.0); HEMATOCRIT 42.3 % (36.0-47.0); HEMOGLOBIN 13.6 g/dl (12.0-15.5); LYMPH % 23.8 % (24.0-44.0); MEAN CORPUSCULAR HEMOGLOBIN 33.3 pg (27.0-33.0); MEAN CORPUSCULAR HGB CONC 32.2 g/dl (32.0-36.5); MEAN CORPUSCULAR VOLUME 103.4 fl (80.0-96.0); MONO # 0.7 10^3/uL (0.0-0.8); MONO % 8.2 % (0.0-5.0); NEUTROPHILS # 5.5 10^3/uL (1.5-8.5); NEUTROPHILS % 65.3 % (36.0-66.0); PLATELET COUNT, AUTOMATED 246 10^3/uL (150-450); RED BLOOD COUNT 4.09 10^6/uL (4.00-5.40); WHITE BLOOD COUNT 8.4 10^3/uL (4.0-10.0)
--- NOTE | 2020-06-15 11:34 | REP ---
INDICATION: Altered Mental Status. COMPARISON: Comparison is made with images from brain MRI study dated January 15, 2020.. TECHNIQUE: Helical scanning is acquired. 5 mm axial images were reformatted. Coronal MPR images were generated. FINDINGS: Bone window settings demonstrate an intact bony calvarium. There is no evidence of skull fracture or incidental bony calvarial lesion. The visualized paranasal sinuses appear clear. No intraorbital abnormality is seen. On soft tissue window setting images; the lateral, third, and fourth ventricles are normal in size and position. León-white differentiation pattern is normal above and below the tentorium. There are is no evidence of intracranial hemorrhage. No mass, edema, infarction, or midline shift is seen. No extra-axial fluid collection is appreciated. There is mild vascular calcification in the carotid siphons bilaterally. IMPRESSION: Mild vascular calcification. Otherwise negative CT study of the brain. No acute intracranial abnormality.. <Electronically signed by Jonn Baird > 06/15/20 [id number]
--- NOTE | 2020-06-15 11:40 | REP ---
INDICATION: Altered Mental Status. COMPARISON: None. TECHNIQUE: Helical scanning is acquired and overlapping 2 mm high resolution axial images were generated and reviewed at bone and soft tissue window settings. Coronal and sagittal multiplanar re-formations images are generated. FINDINGS: There is no evidence of cervical spine element fracture. No skull base fracture is seen. Cervical vertebral body heights are preserved. Alignment is normal. Facet joints are normally aligned bilaterally at each cervical level on multiplanar re-formations images. There is no evidence of intraspinal or paraspinal hematoma. No extra vertebral abnormality is seen. There is moderate degenerative spondylosis change. There is reversal of the normal cervical lordosis. Degenerative disc disease findings are most pronounced at the C5-6 level with discogenic spurring and disc space narrowing. There is posterior osteophytic ridging and mild bilateral uncovertebral spurring at C5-6. Lesser changes are noted at C6-7 and disc narrowing is visible at C4-5. There is mild left-sided uncovertebral spurring at C4-5. Incidental note is made of apparent ankylosis of the facet joints bilaterally at the C2-3 facet level. There is osteoarthritic facet disease at C3-4 bilaterally, right more so than left. IMPRESSION: Degenerative spondylosis changes. Degenerative disc disease most pronounced at C5-6 and C6-7. Osteoarthritic facet disease is most pronounced at C3-4 and C4-5. The C2-3 facets are fused bilaterally. No traumatic abnormality is noted.. <Electronically signed by Jonn Baird > 06/15/20 [id number]
[2020-06-15 12:04] LABS: OSMOLALITY SERUM 387 MOSM/KG (275-295)
[2020-06-15 12:12] LABS: ACETAMINOPHEN LEVEL < 2.0 UG/ML (10.0-30.0); ALBUMIN 3.4 GM/DL (3.2-5.2); ALT/SGPT 49 U/L (12-78); BILIRUBIN,DIRECT 0.1 MG/DL (0.0-0.2); BILIRUBIN,TOTAL 0.3 MG/DL (0.2-1.0); BLOOD UREA NITROGEN 6 MG/DL (7-18); CALCIUM LEVEL 8.9 MG/DL (8.5-10.1); CARBON DIOXIDE LEVEL 22 MEQ/L (21-32); CHLORIDE LEVEL 105 MEQ/L (98-107); CK-MB VALUE MASS 1.2 NG/ML (<3.6); CPK CREATINE PHOSPHOKINASE 48 U/L (26-192); CREATININE FOR GFR 0.57 MG/DL (0.55-1.30); ETHYL ALCOHOL (ETHANOL) 0.393 % (0.000-0.010); GLOMERULAR FILTRATION RATE > 60.0 (>51); GLUCOSE, FASTING 97 MG/DL (70-100); POTASSIUM SERUM 3.7 MEQ/L (3.5-5.1); SODIUM LEVEL 140 MEQ/L (136-145); TOTAL PROTEIN 6.6 GM/DL (6.4-8.2); TROPONIN I < 0.02 NG/ML (< 0.10)
[2020-06-15 13:42] VITALS: BP 121/61
[2020-06-15 13:51] LABS: MAGNESIUM LEVEL 1.8 MG/DL (1.8-2.4)
--- NOTE | 2020-06-15 14:27 | ECGEPIP ---
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
== END 2020-06-15 13:56 | disposition home or self-care (01) ==
LOC: M ED 10:26 → EDBD 10:26 → M ED 13:56
DX: F10.129 Alcohol abuse with intoxication, unspecified (principal); R41.82 Altered mental status, unspecified; S09.90XA Unspecified injury of head, initial encounter; W01.10XA Fall on same level from slipping, tripping and stumbling with subsequent striking against unspecified object, initial encounter; Y92.512 Supermarket, store or market as the place of occurrence of the external cause; I44.7 Left bundle-branch block, unspecified; M47.812 Spondylosis without myelopathy or radiculopathy, cervical region; M50.322 Other cervical disc degeneration at C5-C6 level; Y93.9 Activity, unspecified; I10 Essential (primary) hypertension; K76.0 Fatty (change of) liver, not elsewhere classified; Z79.899 Other long term (current) drug therapy
CPT/HCPCS: 36415; 70450; 72125; 80048; 80076; 82140; 82550; 82553; 82803; 83735; 83930; 84443; 84484; 85025; 93005; 93041; 94760; 99284; G0480

== ENCOUNTER 2020-08-18 09:10 | Outpatient (RCR) | payer OTHER | END 2020-08-19 | LOC: M PT 09:10 | PROVIDERS: ATTEND Family Medicine | DX: G57.93 Unspecified mononeuropathy of bilateral lower limbs (principal) ==

== ENCOUNTER → 2020-08-31 | Outpatient (CLI) | payer SELFPAY | LOC: M LABSMTC 13:17 | PROVIDERS: ATTEND Pediatrics | DX: Z20.828 Contact with and (suspected) exposure to other viral communicable diseases (principal) ==

== ENCOUNTER 2020-09-08 09:28 | Outpatient (RCR) | payer OTHER | END 2020-09-19 | LOC: M PT 09:28 | PROVIDERS: ATTEND Family Medicine | DX: G57.93 Unspecified mononeuropathy of bilateral lower limbs (principal) ==

== ENCOUNTER → 2020-09-20 | Outpatient (REF) ==
[2020-09-20 19:52] LABS: INFLUENZA A AMPLIFICATION NEGATIVE (NEGATIVE); INFLUENZA B AMPLIFICATION NEGATIVE (NEGATIVE)
== END ==
LOC: M LAB 12:59